=== PATIENT | male | born 1990 | race American Indian/Alaskan Native ===

== ENCOUNTER 2018-04-18 08:14 | Inpatient (IN) | payer BC ==
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
[2018-04-18 09:19] LABS: Hematocrit 38.6 % (35.5-45.6); Hemoglobin 12.9 gm/dl (11.8-15.2); Mean Corpuscular HGB Conc 33 % (32-34); Mean Corpuscular Hemoglobin 29 pg (28-32); Mean Corpuscular Volume 88 fl (84-94); Platelet Count 197 K/mm3 (140-440); Red Cell Distribution Width 13.6 % (13.2-15.2)
[2018-04-18 09:27] LABS: INR 0.98 (0.87-1.13)
[2018-04-18 09:28] LABS: Basophils % (Auto) 0.2 % (0.0-1.8); Eosinophils # (Auto) 0.2 K/mm3 (0.0-0.4); Eosinophils % (Auto) 1.5 % (0.0-4.3); Lymphocytes # (Auto) 2.3 K/mm3 (1.2-5.4); Lymphocytes % (Auto) 18.5 % (13.4-35.0); Monocytes # (Auto) 0.9 K/mm3 (0.0-0.8); Monocytes % (Auto) 7.2 % (0.0-7.3)
[2018-04-18 09:37] LABS: Partial Thromboplastin Time 24.7 Sec. (24.2-36.6)
[2018-04-18 09:38] LABS: Creatine Kinase MB 5.1 ng/mL (0.0-4.0)
[2018-04-18 09:41] LABS: Alanine Aminotransferase 35 units/L (7-56); Albumin 3.5 g/dL (3.9-5); BUN/Creatinine Ratio 17; Blood Urea Nitrogen 15 mg/dL (9-20); Hemolysis Index 58
[2018-04-18 10:43] LABS: Amphetamine Screen,Urine PRESUMPTIVE NEGATIVE; Benzodiazepines Screen,Urine PRESUMPTIVE NEGATIVE; Cannabinoid Screen,Urine PRESUMPTIVE NEGATIVE; Cocaine Screen,Urine PRESUMPTIVE NEGATIVE; Methadone Screen,Urine PRESUMPTIVE NEGATIVE; Opiate Screen,Urine PRESUMPTIVE NEGATIVE
--- NOTE | 2018-04-18 11:52 | Cat Scan Report ---
CRANIAL CT SCAN: Trauma, altered mental status. Serial contiguous axial images were obtained through the cranium. Intravenous contrast material was not administered. The ventricles are normal in size and appearance. There is no mass effect or midline shift. No areas of abnormally increased or decreased attenuation are seen. No mass lesion is seen. The mastoid air cells and visualized portions of the sinuses are normal. IMPRESSION: Cranial CT scan within normal limits. CT cervical spine without contrast: Trauma, altered mental status. Transverse images are obtained from skull base to T1. Coronal and sagittal reformatted images included. Normal alignment in the lateral position with slight rotation in the frontal projection. The vertebral height, alignment, and interspaces are preserved. No fracture. Patient spinal canal and foramina. No paraspinous swelling identified. Impression: No significant findings.
[2018-04-18] MEDS ORDERED: NACL 0.9% 500 ML IR ONE (12:04)
[2018-04-18] MEDS ORDERED: XYLOCAINE 1%/ EPI 1:100,000 INFILTRATI ONE (12:04)
[2018-04-18] MEDS ORDERED: NACL 0.9% IR ONE (12:26)
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
[2018-04-18] MEDS ORDERED: SODIUM CHLORIDE FLUSH SYRINGE 10 ML IV PRN (16:06)
[2018-04-18] MEDS ORDERED: ZOFRAN IV PRN (16:06)
[2018-04-18] MEDS ORDERED: PROVENTIL IH PRN (16:06)
[2018-04-18] MEDS ORDERED: TYLENOL PO PRN (16:06)
[2018-04-18] MEDS ORDERED: cefTRIAXone 2 GM in NACL 0.9% 20 ML IV ONE (16:11)
[2018-04-18] MEDS: NACL 0.45% 1000 ML 1,000 ML IV SCH (20:23)
[2018-04-18] MEDS: SODIUM CHLORIDE FLUSH SYRINGE 10 ML IV SCH (20:23)
[2018-04-19] MEDS: SODIUM CHLORIDE FLUSH SYRINGE 10 ML IV SCH ×2 (00:41→10:09)
[2018-04-19] MEDS: NACL 0.45% 1000 ML 1,000 ML IV SCH (03:32)
[2018-04-19 09:54] VITALS: BP 101/58
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
== END 2018-04-19 11:55 | disposition home or self-care (01) | DRG 579 ==
LOC: ED 08:14 → 3A 16:06
PROVIDERS: ADMIT Internal Medicine; ATTEND Hospitalist
PROC: 0WQ0XZZ Repair Head, External Approach (ICD-10-PCS; principal; 2018-04-18)
DX: S01.81XA Laceration without foreign body of other part of head, initial encounter (principal); G93.40 Encephalopathy, unspecified; F07.81 Postconcussional syndrome; Y04.2XXA Assault by strike against or bumped into by another person, initial encounter; Y93.89 Activity, other specified; Y92.89 Other specified places as the place of occurrence of the external cause; Y99.8 Other external cause status; Z79.899 Other long term (current) drug therapy
CPT/HCPCS: 36415; 70450; 72125; 80053; 80307; 80320; 82550; 82553; 84484; 85025; 85610; 85730; 96361; 96374; G0480; J0696